=== PATIENT | male | born 1950 | race Caucasian/White ===

== ENCOUNTER 2017-10-21 18:39 | Emergency (ER) | payer BC ==
--- NOTE | 2017-10-21 18:44 | EDPHY ---
H & P Time Seen by Provider: 10/21/17 18:44 HPI/ROS: CHIEF COMPLAINT: Bimalleolar fracture and dislocation HISTORY OF PRESENT ILLNESS: The patient is a 67 y/o male arriving via EMS from [facility] for orthopedic evaluation of a closed bimalleolar fracture and dislocation that he suffered during a fall while skiing today around 13:30, about 5.5 hours ago. His fracture was confirmed by x-ray and he underwent reduction and splinting under conscious sedation while at that facility. He was transferred by ambulance to this facility at his request, as he would like an orthopedist here. His pain is currently well-controlled. He denies other injuries from the fall, head strike, loss of consciousness, weakness, paresthesias, abdominal pain, chest pain, or other extremity injuries. He was helmeted during the event. No anticoagulants. REVIEW OF SYSTEMS: A ten point review of systems was performed and is negative with the exception of the items mentioned in the HPI. Past medical history: 1. Hypertension - Lisinopril Past surgical history: Denies Family history: Noncontributory Social history: Lives in [place]. PCP: Dr. Rome. General Appearance: Alert. Vital signs reviewed. Head: Normocephalic atraumatic. ENT, Mouth: Mucous membranes are moist, no oropharyngeal erythema or edema. Neck: Nontender to palpation over the cervical spine in the midline. No pain with active range of motion of his neck. Respiratory: Lungs are clear to auscultation; no wheezes, rales, or rhonchi. Cardiovascular: Regular rate and rhythm; no murmur, rub, or gallop. Gastrointestinal: Abdomen is soft and nontender, no masses or organomegaly. Skin: Warm and dry, no rashes on exposed skin, normal color. Back: Nontender to palpation over the thoracolumbar spine. Extremities: No lower extremity edema, no calf tenderness or swelling. Right leg splinted in posterior long leg splint. He is able to wiggle his right toes. He has intact sensation to light touch over lower extremities. Neurological: Alert and oriented. Moving all four extremities. Psychiatric: Normal affect. Constitutional: Initial Vital Signs Temperature (C) 37.3 C 10/21/17 18:54 Heart Rate 92 10/21/17 18:54 Respiratory Rate 18 10/21/17 18:54 Blood Pressure 167/109 H 10/21/17 18:54 O2 Sat (%) 95 10/21/17 18:54 O2 Delivery Mode Room Air Allergies/Adverse Reactions: No Known Allergies Allergy (Unverified 10/21/17 18:56) Home Medications: Medication Instructions Recorded Hydrocodone/APAP 5/325 [Meridian 1 - 2 tab PO Q4 PRN #20 tab 10/21/17 5/325 (RX)] Lisinopril 10/21/17 Medical Decision Making ED Course/Re-evaluation: Consulted with Dr. Conway, orthopedist. He will see patient as an outpatient for follow up tomorrow. Patient will be discharged in a splint with crutches, nonweightbearing on the right, and Vicodin prescription for pain. Standard fracture care instructions given. Follow up and return precautions discussed. He is comfortable with this plan. He was evaluated at [place] emergency department also today. I have not found evidence of other injuries aside from his bimalleolar fracture. I was able to review the x-rays that were provided. No x-rays were repeated. He was not to be hypertensive in the emergency department. He has been compliant with his medication will have this followed up with his primary care physician. Differential Diagnosis: I considered a differential diagnosis of traumatic injury that includes but is not limited to intracranial hemorrhage, skull fracture, concussion, vertebral injury, spinal cord injury, intrathoracic injury, intra-abdominal injury, long bone fractures, contusions, abrasions, and lacerations. - Data Points Medications Given: Discontinued Medications Hydrocodone Bitart/Acetaminophen (Meridian 5/325mg Prepack#6) 1 btl TAKEHOME EDNOW ONE Stop: 10/21/17 21:19 Last Admin: 10/21/17 21:21 Dose: 1 btl Departure - Departure Disposition: Home, Routine, Self-Care Clinical Impression: Bimalleolar fracture of right ankle Qualifiers: Encounter type: initial encounter Fracture type: closed Qualified Code(s): S82.841A - Displaced bimalleolar fracture of right lower leg, initial encounter for closed fracture Condition: Good Instructions: Ankle Fracture (ED) Additional Instructions: 1. Keep splint clean, dry, and intact until follow up. 2. Elevate leg when possible and apply ice to sore areas intermittently. 3. Use crutches to move and do not bear weight on your right foot until cleared by orthopedist. 4. Follow up with Dr. Conway, orthopedist, this week for reevaluation. Call his office first thing tomorrow morning. 5. Use Vicodin as prescribed as needed for severe pain. This medication can make you drowsy, do not use while driving. 6. Return to the ED for severe pain, weakness, numbness, color change in your foot, or other worsening of condition. Referrals: Sandy Conway MD [Medical Doctor] - As per Instructions Prescriptions: Hydrocodone/APAP 5/325 [Meridian 5/325 (RX)] 1 - 2 tab PO Q4 PRN #20 tab PRN Reason: pain Report Scribed for: Brisa Castro Report Scribed by: Farheen Milan Date of Report: 10/21/17 Time of Report: 19:11 Physician Review and Approval Statement: 10/21/17 18:44 Portions of this note were transcribed by the medical secretary teacher. I, Dr. Brisa Castro, personally performed the history, physical exam, and medical decision- making; and confirmed the accuracy of the information in the transcribed note.
[2017-10-21] MEDS ORDERED: HYDROCOD/APAP 5/325 PREPACK#6 BTL TAKEHOME ONE ×2 (21:18→21:19)
[2017-10-21 21:26] VITALS: BP 135/114
== END 2017-10-21 21:33 | disposition home or self-care (01) ==
LOC: EDUNIT#
DX: S82.841A Displaced bimalleolar fracture of right lower leg, initial encounter for closed fracture (principal); I10 Essential (primary) hypertension; V00.321A Fall from snow-skis, initial encounter; Y99.8 Other external cause status; Y93.23 Activity, snow (alpine) (downhill) skiing, snowboarding, sledding, tobogganing and snow tubing